=== PATIENT | male | born 1950 | race Caucasian/White ===

== ENCOUNTER 2025-08-05 09:47 | Outpatient (CLI) | payer MEDICARE ==
[2025-08-05 11:22] LABS: Estimated GFR - POC 44.0
== END 2025-08-05 09:48 | disposition home or self-care (01) ==
LOC: CSHCT 09:47
PROVIDERS: ATTEND Thoracic Surgery (Cardiothoracic Vascular Surgery)
DX: I71.43 Infrarenal abdominal aortic aneurysm, without rupture (principal); T82.39 Other mechanical complication of other vascular grafts
CPT/HCPCS: 74174; 82565